=== PATIENT | male | born 1990 | race Caucasian/White ===

== ENCOUNTER 2016-10-26 13:00 | Emergency (ER) | payer BC, OTHER ==
[2016-10-26 13:13] VITALS: BP 144/86; PULSE 68; RESP 18; TEMP 98.1; O2SAT 98
--- NOTE | 2016-10-26 13:49 | UCPHY ---
H & P Patient Type: New Chief Complaint Nursing Narrative: BURNING RASH ON BACK AND CHEST STARTED 2 DAYS AGO, THOUGHT WAS FROM SPIDER BITE Time Seen by Provider: 10/26/16 13:35 HPI/ROS: CHIEF COMPLAINT: Rash HISTORY OF PRESENT ILLNESS: The patient is a 25-year-old man who comes to the Urgent Care complaining of a rash to his back and left pectoralis area. He states that it began 3 days ago. He thought that it was a spider bite. It is painful. No purulence. He did have a mild febrile illness last week but is now improved. REVIEW OF SYSTEMS: Constitutional: denies: chills, fever, recent illness, recent injury EENTM: denies: blurred vision, double vision, nose congestion Respiratory: denies: cough, shortness of breath Cardiac: denies: chest pain, irregular heart rate, lightheadedness, palpitations Gastrointestinal/Abdominal: denies: abdominal pain, diarrhea, nausea, vomiting, blood streaked stools Genitourinary: denies: dysuria, frequency, hematuria, pain Musculoskeletal: denies: joint pain, muscle pain Skin: see HPI Neurological: denies: headache, numbness, paresthesia, tingling, dizziness, weakness Hematologic/Lymphatic: denies: blood clots, easy bleeding, easy bruising Immunologic/allergic: denies: HIV/AIDS, transplant EXAM: GENERAL: Well-appearing, well-nourished and in no acute distress. HEAD: Atraumatic, normocephalic. EYES: Pupils equal round and reactive to light, extraocular movements intact, sclera anicteric, conjunctiva are normal. ENT: TMs normal, nares patent, oropharynx clear without exudates. Moist mucous membranes. NECK: Normal range of motion, supple without lymphadenopathy or JVD. LUNGS: Breath sounds clear to auscultation bilaterally and equal. No wheezes rales or rhonchi. HEART: Regular rate and rhythm without murmurs, rubs or gallops. ABDOMEN: Soft, nontender, normoactive bowel sounds. No guarding, no rebound. No masses appreciated. BACK: No CVA tenderness, no spinal tenderness, step-offs or deformities EXTREMITIES: Normal range of motion, no pitting or edema. No clubbing or cyanosis. NEUROLOGICAL: Cranial nerves II through XII grossly intact. Normal speech, normal gait. 5/5 strength, normal movement in all extremities, normal sensation PSYCH: Normal mood, normal affect. SKIN: Vesicular shingles type rash over left back and anterior chest in a T3 distribution Source: Patient Exam Limitations: No limitations - Medical/Surgical History Hx Asthma: No Hx Chronic Respiratory Disease: No Hx Diabetes: No Hx Cardiac Disease: No Hx Renal Disease: No Hx Cirrhosis: No Other PMH: DENIES - Family History Significant Family History: No pertinent family hx - Social History Smoking Status: Never smoked Alcohol Use: Sober Drug Use: None Constitutional: Initial Vital Signs Temperature (C) 36.7 C 10/26/16 13:10 Heart Rate 68 10/26/16 13:10 Respiratory Rate 18 10/26/16 13:10 Blood Pressure 144/86 H 10/26/16 13:10 O2 Sat (%) 98 10/26/16 13:10 O2 Delivery Mode Room Air Allergies/Adverse Reactions: No Known Allergies Allergy (Verified 12/25/12 14:01) Home Medications: Medication Instructions Recorded Miscellaneous Medical Supply [NO 1 ea MISC AD 12/25/12 HOME MEDS] Hydrocodone/APAP 5/325 [Madison 1 - 2 tab PO Q4H PRN #10 tab 10/26/16 5/325 (RX)] Valacyclovir HCl [Valtrex] 1,000 mg PO TID #21 tab 10/26/16 predniSONE 60 mg PO DAILY #15 tab 10/26/16 Medical Decision Making ED Course/Re-evaluation: Patient is an otherwise healthy man with shingles. I will treat him with valacyclovir and steroids. I will also provide him with a prescription for pain medications which she requests at night. He declines further workup or testing. He will follow up with his primary physician. Differential Diagnosis: Partial list of the Differential diagnosis considered include but were not limited to; of shingles, spider bite, allergic reaction and although unlikely based on the history and physical exam, I also considered cellulitis, abscess. I discussed these differential diagnoses and the plan with the patient as well as the usual and expected course. The patient understands that the diagnosis is provisional and that in medicine we are not always correct and that further workup is often warranted. Usual and customary warnings were given. All of the patient's questions were answered. The patient was instructed to return to the emergency department should the symptoms at all worsen or return, otherwise to followup with the physician as we discussed. Departure - Departure Disposition: Home, Routine, Self-Care Clinical Impression: Zoster Qualifiers: Herpes zoster complications: without complications Qualified Code(s): B02.9 - Zoster without complications Condition: Good Instructions: Shingles (ED) Referrals: NONE *PRIMARY CARE P,. [Primary Care Provider] - As per Instructions Chey Rivers MD [Medical Doctor] - As per Instructions Prescriptions: Hydrocodone/APAP 5/325 [Madison 5/325 (RX)] 1 - 2 tab PO Q4H PRN #10 tab PRN Reason: Pain, Moderate predniSONE 60 mg PO DAILY #15 tab Valacyclovir HCl [Valtrex] 1,000 mg PO TID #21 tab - PQRS PQRS Measurement: Not applicable
== END 2016-10-26 13:50 | disposition home or self-care (01) ==
LOC: CED 13:00
DX: B02.9 Zoster without complications (principal)
CPT/HCPCS: 99214-PO; G0463-PO